=== PATIENT | female | born 1960 | race Asian ===

== ENCOUNTER 2019-07-08 09:16 | Emergency (ER) | payer OTHER ==
[~2019-07-08] VITALS: Ht 147.3 cm; Wt 56.8 kg
[2019-07-08 09:20] VITALS: BP 162/80
--- NOTE | 2019-07-08 09:23 | NUR ---
PATIENT AMBULATED TO BED 4.
[2019-07-08] MEDS ORDERED: TETRACAINE HCL/PF 0.5% OPTH 4 ML BTL OP ONE (09:30)
[2019-07-08] MEDS ORDERED: TETRACAINE HCL/PF 0.5% OPTH 4 ML BTL ONE ×2 (09:30→11:32)
--- NOTE | 2019-07-08 09:56 | NUR ---
PT CAME INTO THE ED WITH C/O LEFT EYE PAIN S/P ACCIDENTALLY PUTTING ANTISEPTIC ASAF. PT EYES IS RED, WATERY, AND IRRITATED. NO VISON LOST. ABLE TO TRACK APPROPRIATELY. IN BED FOR MD LI.
--- NOTE | 2019-07-08 10:00 | NUR ---
JENNIFER GALINDO EYE WASH WITH NS INTIATED PER MD ORDER. PT TOLERATED WELL.
[2019-07-08] MEDS ORDERED: FLUORESCEIN OPTH STRIP 0.6 MG OP ONE (10:30)
--- NOTE | 2019-07-08 11:14 | NUR ---
EYE RINSE STILLL IN PROGRESS. PT TOLERATING WELL.
--- NOTE | 2019-07-08 12:00 | NUR ---
EYE RINSE COMPLETE. PT TOLERATED WELL. MD AT BEDSIDE FOR EYE EXAM.
[2019-07-08] MEDS ORDERED: ERYTHROMYCIN 0.5% OPTH OINT 1 GM TUBE OP ONE (12:10)
[2019-07-08 12:35] VITALS: BP 158/76
--- NOTE | 2019-07-08 12:35 | NUR ---
Patient discharged with v/s stable. Written and verbal after care instructions given and explained. Patient alert, oriented and verbalized understanding of instructions. Ambulatory with steady gait. All questions addressed prior to discharge. ID band removed. Patient advised to follow up with PMD. Rx of ERYTHROMYCIN EYE OINTMENT given. Patient educated on indication of medication including possible reaction and side effects. Opportunity to ask questions provided and answered.
== END 2019-07-08 12:35 | disposition home or self-care (01) ==
LOC: MED 09:16
DX: S05.02XA Injury of conjunctiva and corneal abrasion without foreign body, left eye, initial encounter (principal); X58.XXXA Exposure to other specified factors, initial encounter; Y93.89 Activity, other specified; Y92.89 Other specified places as the place of occurrence of the external cause; Y99.8 Other external cause status
CPT/HCPCS: 99284